=== PATIENT | male | born 1950 | race American Indian/Alaskan Native ===

== ENCOUNTER 2021-01-20 06:33 | Day surgery (SDC) | payer MEDICARE ==
[2021-01-20] MEDS ORDERED: fentaNYL 100 MCG/2 ML INJ ONE (07:06)
[2021-01-20] MEDS ORDERED: ePHEDrine SULFATE 50 MG/1 ML INJ ONE (07:06)
[2021-01-20] MEDS ORDERED: MIDAZOLAM 5 MG/5 ML INJ MDV IV ONE (07:06)
[2021-01-20] MEDS ORDERED: KETAMINE/STERILE WATER 50 MG/ML SYRINGE ONE (07:13)
[2021-01-20 07:41] LABS: Basophils % (Auto) 0.8 % (0.0-1.8); Eosinophils # (Auto) 0.1 K/mm3 (0.0-0.4); Eosinophils % (Auto) 1.6 % (0.0-4.3); Hematocrit 44.9 % (35.5-45.6); Lymphocytes # (Auto) 1.3 K/mm3 (1.2-5.4); Lymphocytes % (Auto) 21.6 % (13.4-35.0); Mean Corpuscular HGB Conc 34 % (32-34); Mean Corpuscular Volume 99 fl (84-94); Monocytes # (Auto) 0.4 K/mm3 (0.0-0.8); Monocytes % (Auto) 7.3 % (0.0-7.3); Platelet Count 369 K/mm3 (140-440); Red Blood Count 4.55 M/mm3 (3.65-5.03); Red Cell Distribution Width 14.7 % (13.2-15.2)
[2021-01-20 07:52] LABS: INR 1.05 (0.87-1.13); Partial Thromboplastin Time 32.7 Sec. (24.2-36.6)
[2021-01-20 07:54] LABS: BUN/Creatinine Ratio 11; Blood Urea Nitrogen 9 mg/dL (9-20); Calcium 9.6 mg/dL (8.4-10.2); Hemolysis Index 0
[2021-01-20] MEDS ORDERED: LIDOCAINE MPF (2%) 20 MG/1 ML VIAL 5 ML ONE (08:00)
[2021-01-20] MEDS ORDERED: SODIUM CHLORIDE 0.9% 500 ML 500 ML IV SCH (08:00)
--- NOTE | 2021-01-20 08:11 | Anesthesia Day of Surgery ---
Anesthesia Day of Surgery - Day of Surgery Patient Examined: Yes Patient H&P Reviewed: Yes Patient is NPO: Yes
--- NOTE | 2021-01-20 08:12 | Anesthesia Consultation ---
Anesthesia Consult and Med Hx Date of service: 01/20/21 - Airway Anesthetic Teeth Evaluation: Poor ROM Head & Neck: Adequate Mental/Hyoid Distance: Adequate Mallampati Class: Class II Intubation Access Assessment: Good - Pre-Operative Health Status ASA Pre-Surgery Classification: ASA3 Proposed Anesthetic Plan: MAC - Pulmonary Hx Smoking: Yes - Cardiovascular System Hx Hypertension: Yes Hx Peripheral Vascular Disease: Yes (PAD) - Central Nervous System Hx Psychiatric Problems: No - Gastrointestinal Hx Gastroesophageal Reflux Disease: No - Other Systems Hx Cancer: No Hx Obesity: No
[2021-01-20] MEDS ORDERED: HEPARIN/NS 5000 UNIT/500ML 1,000 ML IR ONE ×2 (08:31→10:59)
[2021-01-20] MEDS ORDERED: HEPARIN 10,000 UNITS/10 ML VIAL ONE (08:31)
[2021-01-20] MEDS ORDERED: VERAPAMIL 5 MG/2 ML INJ ONE (08:31)
[2021-01-20] MEDS ORDERED: LIDOCAINE (2%) 20 MG/1 ML VIAL 20 ML MDV INFILTRATI ONE (08:32)
[2021-01-20] MEDS ORDERED: NITROGLYCERIN SYRINGE 3 ML ONE (08:32)
--- NOTE | 2021-01-20 08:37 | Short Stay Summary ---
Short Stay Documentation Date of service: 01/20/21 - History Principal diagnosis: Peripheral vascular disease with claudication, left leg Past Medical History: PVD Past Surgical History: Other (Right leg revascularization) Social history: no significant social history - Allergies and Medications Current Medications: Allergies No Known Allergies Allergy (Verified 01/20/21 07:05) Active Medications Sodium Chloride (Nacl 0.9% 500 Ml) 500 mls @ 50 mls/hr IV DIRECT GLORY Last Admin: 01/20/21 08:34 Dose: 50 mls/hr Documented by: - Physical exam General appearance: no acute distress Integumentary: no rash, no growths HEENT: Atraumatic Lungs: Normal air movement Heart: Regular rate Gastrointestinal: no distended, no guarding Male Genitourinary: deferred Rectal Exam: deferred Extremities: abnormal (Nonpalpable left pedal pulses) Neurological: Normal gait, Normal speech - Brief post op/procedure progress note Date of procedure: 01/20/21 Pre-op diagnosis: Peripheral vascular disease with rest pain Post-op diagnosis: same Procedure: Revascularization of left SFA, pop and proximal anterior tibial artery with angioplasty from a antegrade and pedal approach Anesthesia: MAC Surgeon: CHEKO DICKINSON Estimated blood loss: minimal Pathology: none Condition: stable - Disposition Condition at discharge: Good Disposition: 01 HOME / SELF CARE / HOMELESS Short Stay Discharge Plan Activity: advance as tolerated Weight Bearing Status: Weight Bear as Tolerated Diet: regular Wound: keep clean and dry, per your surgeon's advice Follow up with: PRIMARY MD JUICE [Primary Care Provider] - 7 Days
[2021-01-20] MEDS ORDERED: HEPARIN/NS 5000 UNITS/500 ML BAG (CATH LAB ONLY) IR ONE ×3 (08:50→10:43)
[2021-01-20] MEDS ORDERED: ceFAZolin/Water 2 GM/20 ML 2 GM/20 ML SYRINGE IV ONE (09:00)
[2021-01-20] MEDS ORDERED: NITROGLYCERIN 600 MCG/3 ML SYRINGE UD ONE (09:30)
[2021-01-20] MEDS ORDERED: HEPARIN 10,000 UNITS/10 ML VIAL IV ONE ×2 (09:30→11:05)
[2021-01-20] MEDS ORDERED: VERAPAMIL 5 MG/2 ML INJ IV ONE (09:30)
[2021-01-20] MEDS ORDERED: propofoL 200 MG/20 ML VIAL IV ONE ×6 (10:12→10:22)
[2021-01-20] MEDS ORDERED: MIDAZOLAM 2 MG/2 ML INJ ONE (10:21)
[2021-01-20] MEDS ORDERED: MIDAZOLAM 2 MG/2 ML INJ IV ONE (10:23)
[2021-01-20] MEDS ORDERED: HEPARIN/NS 5000 UNIT/500ML 500 ML IR ONE (10:39)
[2021-01-20] MEDS ORDERED: SODIUM CHLORIDE 0.9% 1000 ML 1,000 ML ONE (10:39)
[2021-01-20] MEDS ORDERED: NITROGLYCERIN 2% OINT 1 GM TP ONE (11:54)
--- NOTE | 2021-01-20 12:04 | Operative Report ---
Operative Report Operative Report: Exam: Left leg revascularization of the SFA, popliteal and proximal anterior tibial artery using angioplasty Clinical indication: Patient with a history of peripheral vascular disease with rest pain left leg Date: 01/20/2021 Procedure: Following an explanation of the risks, benefits and alternatives; written informed consent was obtained. The patient was brought to the angiographic suite and placed in supine position on the examination table. The patient's left foot and right groin were prepped and draped in the usual sterile fashion. 1% lidocaine was used for anesthesia. Initial ultrasound evaluation of the patient's left foot demonstrated a patent distal left anterior tibial artery. Access to the left distal anterior tibial artery was performed using a 3-1/2 cm 21-gauge needle. A 0.018 guidewire was advanced proximally. The needle was removed and the inner portion of a microdilator placed. The mandrel wire was removed and a V 18 guidewire advanced through the micro sheath to the distal end of a previously placed nitinol stent in the popliteal artery. A variety of catheters including vertebral catheter, trailblazer catheters and a variety of guidewires were utilized to manipulate the guidewire and catheter into the SFA. Contrast was injected at multiple locations. This demonstrated branch vessels however, there was severe underfilling of the SFA. The catheter and guidewires were removed manipulated proximally. In the proximal SFA just below the common femoral artery there was medial deviation. Access in the right groin was then obtained using a 7 cm 21-gauge needle. A 0.018 guidewire was advanced centrally. The needle was removed and a microsheath placed. The 0.018 guidewire was exchanged for a 0.035 guidewire and the micro sheath exchanged for a 5 [place]onian sheath. An Omni Flush catheter was then advanced over the guidewire through the sheath. This was manipulated to previously placed self-expanding nitinol stents in the common and external iliac arteries bilaterally. Contrast was injected with the catheter in the distal abdominal aorta which demonstrates diffuse atherosclerotic disease. The bifurcation was crossed using the Omni Flush catheter and a combination of advantage guidewire and Amplatz guidewire. With the Omni Flush catheter and guidewire in the common femoral artery. Contrast was injected. This demonstrates flush occlusion of the SFA. The profunda did also demonstrates truncation with a continuation of the profunda through a large lateral branch. The 5 Cam[place]onian sheath was exchanged for a 6 [place]onian 45 cm sheath. A vertebral catheter was then advanced over the guidewire. Using a variety of catheters and guidewires a vertebral catheter was manipulated into the true SFA lumen proximally. Together the catheter and guidewire were manipulated in the mid to distal SFA. Attempts to insert a guidewire from below or above into the distal or proximal catheter in an attempt to obtain through and through access were unsuccessful. Ultimately, with a variety of injections of contrast. True luminal positioning was identified both above and below however,'s dissection was identified as well. A 4 mm x 220 mm angioplasty balloon was advanced through the pedal sheath. Angioplasty was performed from the proximal anterior tibial artery through the occluded popliteal artery stent into the mid SFA. A 4 mm x 80 mm balloon was then advanced over the guidewire through the sheath in the right groin. The balloon was advanced to just proximal to the pedal balloon. Angioplasty was then performed from above using the 4 mm x 80 mm balloon sequentially at multiple locations including the ostium of the SFA. Both balloons were removed. Contrast was injected which demonstrates flow within the [place] SFA. Scattered areas of dissection are present however. The leg was followed down the flow was identified all the way down into the anterior tibial artery. At this point, decision was made to conclude this portion of the procedure and hemostasis was achieved in both the right groin and left anterior tibial artery using manual compression. Sterile pressure dressings were applied. The patient tolerated the procedure well. There were no immediate postprocedure complications. Sedation was provided by anesthesia services. Continuous cardiopulmonary monitoring was utilized. Impression: 1) Angiography of the aorta and left lower extremity demonstrating nitinol self-expanding stents previously placed in the external and iliac artery on the left as well as right. Self-expanding nitinol stents have previously been placed in the popliteal artery as well. There is complete occlusion of the SFA. There is also truncation of the popliteal artery with predominant flow to the leg coming from a collateral coming off the profunda artery. 2) Revascularization of the SFA from both an antegrade and pedal approach using a ngioplasty alone given the complexity of the lesion. 3) The patient will need to return to have a drug-coated stent placed from the origin of his SFA through the previously occluded popliteal stent into the tibioperoneal trunk.
[2021-01-20] MEDS ORDERED: HYDROcodone/ACETAMINOPHEN 5-325 MG TAB PO ONE (13:01)
[2021-01-20] MEDS ORDERED: RIVAROXABAN 15 MG TAB PO ONE (14:00)
[2021-01-20] MEDS ORDERED: ONDANSETRON 4 MG/2 ML INJ ONE (14:30)
[2021-01-20] MEDS ORDERED: ONDANSETRON 4 MG/2 ML INJ IV ONE (14:30)
--- NOTE | 2021-01-20 15:24 | Post Anesthesia Evaluation ---
- Post Anesthesia Evaluation Patient Participated: Yes Airway Patent: Yes Stable Respiratory Function: Yes Nausea/Vomiting: No Temp > 96.8F: Yes Pain Manageable: Yes Adequeate Hydration: Yes Anesthesia Complications: No Block Receding Appropriately: Not Applicable Patient on Ventilator: No
[2021-01-20 16:40] VITALS: BP 160/88
== END 2021-01-20 06:34 | disposition home or self-care (01) ==
LOC: CATHLABREC 06:33
PROVIDERS: ATTEND Radiology Diagnostic Radiology
DX: I70.222 Atherosclerosis of native arteries of extremities with rest pain, left leg (principal); I10 Essential (primary) hypertension; F17.210 Nicotine dependence, cigarettes, uncomplicated; Z79.899 Other long term (current) drug therapy; Z98.890 Other specified postprocedural states
CPT/HCPCS: 36415; 37224; 37228; 76937; 80048; 85025; 85610; 85730; C1725; C1751; C1769; C1887; C1894; J0690; J1644; J2250; J2405; J2704; J3010; J3490; J7030; J7040; Q9967

== ENCOUNTER 2021-02-03 06:27 | Day surgery (SDC) | payer MEDICARE ==
[2021-02-03 07:13] LABS: Basophils % (Auto) 0.3 % (0.0-1.8); Eosinophils # (Auto) 0.1 K/mm3 (0.0-0.4); Eosinophils % (Auto) 2.7 % (0.0-4.3); Hematocrit 39.3 % (35.5-45.6); Lymphocytes # (Auto) 1.4 K/mm3 (1.2-5.4); Lymphocytes % (Auto) 27.9 % (13.4-35.0); Mean Corpuscular HGB Conc 33 % (32-34); Mean Corpuscular Volume 97 fl (84-94); Monocytes # (Auto) 0.5 K/mm3 (0.0-0.8); Monocytes % (Auto) 8.9 % (0.0-7.3); Platelet Count 413 K/mm3 (140-440); Red Blood Count 4.04 M/mm3 (3.65-5.03); Red Cell Distribution Width 14.5 % (13.2-15.2)
[2021-02-03 07:23] LABS: INR 1.47 (0.87-1.13)
[2021-02-03 07:24] LABS: Partial Thromboplastin Time 42.8 Sec. (24.2-36.6)
[2021-02-03] MEDS ORDERED: fentaNYL 100 MCG/2 ML INJ ONE (07:24)
[2021-02-03] MEDS ORDERED: PHENYLEPHRINE/NS 1,000 MCG/10 ML SYRINGE (OR USE) IV ONE (07:24)
[2021-02-03] MEDS ORDERED: LIDOCAINE MPF (2%) 20 MG/1 ML VIAL 5 ML ONE (07:24)
[2021-02-03] MEDS ORDERED: ePHEDrine SULFATE 50 MG/1 ML INJ ONE (07:25)
[2021-02-03] MEDS ORDERED: KETAMINE/STERILE WATER 50 MG/ML SYRINGE ONE (07:25)
[2021-02-03 07:27] LABS: BUN/Creatinine Ratio 15; Blood Urea Nitrogen 12 mg/dL (9-20); Calcium 9.1 mg/dL (8.4-10.2); Hemolysis Index 8
[2021-02-03] MEDS ORDERED: MIDAZOLAM 5 MG/5 ML INJ MDV IV ONE (07:28)
--- NOTE | 2021-02-03 08:00 | Anesthesia Consultation ---
Anesthesia Consult and Med Hx Date of service: 02/03/21 - Airway Anesthetic Teeth Evaluation: Poor, Chipped ROM Head & Neck: Adequate Mental/Hyoid Distance: Adequate Mallampati Class: Class II Intubation Access Assessment: Probably Good - Pulmonary Exam CTA: Yes - Cardiac Exam Cardiac Exam: RRR - Pre-Operative Health Status ASA Pre-Surgery Classification: ASA3 Proposed Anesthetic Plan: General, MAC - Pulmonary Hx Smoking: Yes - Cardiovascular System Hx Hypertension: Yes Hx Peripheral Vascular Disease: Yes (PAD) - Central Nervous System Hx Psychiatric Problems: No - Gastrointestinal Hx Gastroesophageal Reflux Disease: No - Endocrine Hx Renal Disease: No Hx Liver Disease: No Hx Insulin Dependent Diabetes: No Hx Non-Insulin Dependent Diabetes: No - Hematic Hx Anemia: No - Other Systems Hx Alcohol Use: Yes Hx Cancer: No Hx Obesity: No - Additional Comments Anesthesia Medical History Comments: no gac, no fhac
[2021-02-03] MEDS ORDERED: ONDANSETRON 4 MG/2 ML INJ ONE (08:17)
[2021-02-03] MEDS ORDERED: dexAMETHasone 20 MG/5 ML VIAL ONE (08:17)
--- NOTE | 2021-02-03 08:37 | Short Stay Summary ---
Short Stay Documentation Date of service: 02/03/21 - History Principal diagnosis: Peripheral vascular disease with left leg claudication Past Medical History: PVD Past Surgical History: Other (Prior right leg revascularization) Social history: no significant social history - Allergies and Medications Current Medications: Allergies No Known Allergies Allergy (Verified 01/20/21 07:05) Home Medications Medication Instructions Recorded Confirmed Last Taken Type Acetaminophen [Tylenol] 650 mg PO Q8HR PRN 01/20/21 02/03/21 02/02/21 History Rivaroxaban [Xarelto] 15 mg PO QDAY #60 tablet 01/20/21 02/03/21 02/02/21 Rx traMADoL [Ultram 50 MG tab] 50 mg PO Q6HR PRN #35 tablet 01/20/21 02/03/21 02/02/21 Rx Active Medications Sodium Chloride (Nacl 0.9% 1000 Ml) 1,000 mls @ 42 mls/hr IV DIRECT GLORY - Physical exam General appearance: no acute distress HEENT: Atraumatic Lungs: Normal air movement Breasts: deferred Heart: Regular rate Gastrointestinal: normal Male Genitourinary: deferred Rectal Exam: deferred Extremities: abnormal (Decreased pedal pulses) - Brief post op/procedure progress note Date of procedure: 02/03/21 Pre-op diagnosis: Left leg claudication Post-op diagnosis: same Procedure: Revascularization of the left SFA, popliteal artery, tibioperoneal trunk and proximal posterior tibial artery Anesthesia: local Surgeon: CHEKO DICKINSON Estimated blood loss: minimal Pathology: none Condition: stable - Disposition Disposition: 01 HOME / SELF CARE / HOMELESS Short Stay Discharge Plan Activity: advance as tolerated Weight Bearing Status: Weight Bear as Tolerated Diet: regular Wound: keep clean and dry, per your surgeon's advice Follow up with: PRIMARY CAREMD [Primary Care Provider] - 7 Days
[2021-02-03] MEDS ORDERED: HEPARIN/NS 5000 UNIT/500ML 1,000 ML IR ONE (08:46)
[2021-02-03] MEDS ORDERED: HEPARIN 10,000 UNITS/10 ML VIAL ONE (08:47)
[2021-02-03] MEDS ORDERED: VERAPAMIL 5 MG/2 ML INJ ONE (08:47)
[2021-02-03] MEDS ORDERED: NITROGLYCERIN SYRINGE 3 ML ONE (08:47)
[2021-02-03] MEDS ORDERED: LIDOCAINE (2%) 20 MG/1 ML VIAL 20 ML MDV INFILTRATI ONE ×2 (08:47→09:17)
[2021-02-03] MEDS ORDERED: ceFAZolin/STERILE WATER 2 GM/20 ML SYRINGE IV ONE (08:51)
[2021-02-03] MEDS ORDERED: SODIUM CHLORIDE 0.9% 1000 ML 1,000 ML IV SCH (09:00)
[2021-02-03] MEDS ORDERED: HEPARIN/NS 5000 UNITS/500 ML BAG (CATH LAB ONLY) IR ONE ×2 (09:05)
[2021-02-03] MEDS ORDERED: MIDAZOLAM 2 MG/2 ML INJ IV ONE (09:30)
[2021-02-03] MEDS ORDERED: MIDAZOLAM 2 MG/2 ML INJ ONE (09:30)
[2021-02-03] MEDS ORDERED: NITROGLYCERIN 600 MCG/3 ML SYRINGE UD ONE (09:40)
[2021-02-03] MEDS ORDERED: VERAPAMIL 5 MG/2 ML INJ IV ONE (09:40)
[2021-02-03] MEDS ORDERED: HEPARIN 10,000 UNITS/10 ML VIAL IV ONE ×2 (09:40→10:11)
[2021-02-03] MEDS ORDERED: PHENYLEPHRINE 10 MG/1 ML INJ SDV ONE (09:45)
[2021-02-03] MEDS ORDERED: SODIUM CHLORIDE 0.9% 100 ML ONE (09:45)
[2021-02-03] MEDS ORDERED: HEPARIN/NS 5000 UNIT/500ML 500 ML IR ONE (10:35)
[2021-02-03] MEDS ORDERED: CLOPIDOGREL 75 MG TAB ONE (11:10)
--- NOTE | 2021-02-03 11:22 | Operative Report ---
Operative Report Operative Report: Exam: Left lower extremity revascularization from pedal approach Clinical indication: Patient with a history of prior interventions at an outside institution including placement of common to external iliac artery nitinol stents and a popliteal nitinol stent. Patient underwent prior attempts to cross his occluded SFA but was return for placement of drug-coated stents to maintain the patency of his SFA. Date: 02/03/2021 Procedure: Following an explanation of the risk, benefits and alternatives; written informed consent was obtained. The patient was brought to the angiographic suite and placed in supine position on the examination table. His left foot and bilateral groins were prepped and draped in the usual sterile fashion. 1% lidocaine was used for anesthesia. Under ultrasound guidance, the left posterior tibial artery was cannulated with a 3-1/2 cm 21-gauge needle. A 0.018 guidewire was advanced centrally. The needle was removed and the inner portion of a microsheath placed. Contrast was injected to document intra-arterial positioning. At the 18 guidewire was then advanced through the micro sheath and the micro sheath exchanged for a six five Maltese low-profile sheath. A trailblazer catheter was then advanced over the 018 guidewire and together the catheter and guidewire were used to manipulate through the occluded posterior tibial artery proximally, tibioperoneal trunk, popliteal artery and SFA ultimately ending in the common femoral artery on the left. Contrast was inje cted to them. Demonstrate appropriate positioning. Given the long segment narrowing the decision was made to perform intravascular ultrasound. Intravascular ultrasound was performed from the left common femoral artery, left superficial femoral artery, left popliteal artery, left tibioperoneal trunk, and left posterior tibial artery. This demonstrated true luminal positioning. There is complete occlusion however luminal flow is present and skip lesions throughout the SFA. The guidewire and catheter are within the lumen of the previously placed stent. Dilatation of the SFA, popliteal artery were performed using a 4 mm x 220 mm balloon insufflated nominal atmospheres of multiple locations. Inflation of the tibioperoneal trunk and posterior tibial artery proximally was performed using a 3 mm x 220 mm balloon insufflated to nominal atmospheres at multiple locations. At this point, a trailblazer catheter was advanced in the common femoral artery and the guidewire removed. Contrast was injected and obliquities obtained to demonstrate the origin of the SFA. The guidewire was reinserted to the trailblazer catheter removed. Treatment of the SFA was then performed using placement of two 6 mm x 120 mm Dorothea stents extending from the ostium of the SFA to the mid SFA. The stents were seated using a 6 mm balloon. Post and placement angioplasty demonstrated appropriate positioning and no jailing of the profunda. However, there remains significantly occluded SFA more distally. Within mid to distal portion of the SFA, a 6 mm x 200 mm ever flex was placed to extend the [place] stents more distally. Next, a 5 mm x 120 mm ever flex stent was then used to extend the previously placed ever flex into the proximal popliteal artery stent. The stents were then seated using a 5 mm x 220 mm balloon insufflated to nominal atmospheres of multiple occasions. At this point, contrast was injected through the sheath and reflux extended up into the superficial femoral artery with brisk washout. Three-vessel runoff is identified proximally however, there is spasm distally. Given the significant stenosis within the popliteal artery stent, decision was made to treat this lesion with drug-coated balloon. A 5 mm x 150 mm impact drug-coated balloon was then advanced from the distal SFA to the distal popliteal artery. The balloon was insufflated to nominal atmospheres for 3 min utes. At this point, trailblazer catheter was advanced over the guidewire into the common femoral artery under fluoroscopy. The guidewire was removed. Contrast was injected and imaging obtained at multiple locations throughout the leg. This demonstrates inline flow from the common femoral artery distally. There is spasm in the calf vessels. At this point, the catheters, guidewires and sheaths were removed and hemostasis achieved at the left ankle using manual compression. A pressure dressing was applied. The patient tolerated the procedure well. There were no immediate postprocedure complications. Sedation was provided by anesthesia services. Continuous cardiopulmonary monitoring was utilized. Impression: 1) Revascularization with the SFA using angioplasty and stent placement. 2) Revascularization of the popliteal artery using angioplasty and stent placement. 3) Revascularization of the tibioperoneal trunk and proximal posterior tibial artery using angioplasty. 4) Intravascular ultrasound. 5) Angiography of left lower extremity. Numeral six) the patient is currently on Xarelto. He will have Plavix added to his drug regimen.
[2021-02-03] MEDS ORDERED: CLOPIDOGREL 75 MG TAB PO ONE (12:31)
[2021-02-03 15:00] VITALS: BP 145/86
== END 2021-02-03 14:30 | disposition home or self-care (01) ==
LOC: CATHLABREC 06:27
PROVIDERS: ATTEND Radiology Diagnostic Radiology
DX: I70.235 Atherosclerosis of native arteries of right leg with ulceration of other part of foot (principal); I10 Essential (primary) hypertension; F17.210 Nicotine dependence, cigarettes, uncomplicated; Z79.899 Other long term (current) drug therapy; Z98.890 Other specified postprocedural states; Z72.89 Other problems related to lifestyle
CPT/HCPCS: 36415; 37226; 37228; 37252; 75710; 76937; 80048; 85025; 85610; 85730; C1725; C1751; C1753; C1769; C1874; C1876; C1887; C1894; C2623; J0690; J1100; J1644; J2250; J2370; J2405; J2704; J3010; J3490; J7030; Q9967